=== PATIENT | male | born 1970 | race Caucasian/White ===

== ENCOUNTER 2023-07-24 18:29 | Emergency (ER) | payer OTHER, SELFPAY ==
[2023-07-24 18:35] VITALS: BP 139/81; PULSE 85; RESP 20; TEMP 36.4; O2SAT 95; BMI 30.7
--- NOTE | 2023-07-24 18:50 | XR_ITS ---
[place] [id number] Patient Name: PINA FAULKNER MRN: [id number] date: 1970 Sex: M Assigned Patient Location: ER Current Patient Location: ER Accession/Order Number: [id number] Exam Date: 07/24/2023 19:00 Report Date: 07/24/2023 19:30 At the request of: LUIS ANTONIO TREVIZO Procedure: XR hand RT min 3V EXAM: XR hand RT min 3V HISTORY: Hand pain COMPARISON: None. TECHNIQUE: Region views FINDINGS: No osseous lesion, fracture, dislocation or subluxation. Joint spaces are normal. Negative ulnar variance within normal limits. No visualized effusion. No visualized soft tissue edema. XR/XR hand RT min 3V IMPRESSION: No visualized abnormality Electronically authenticated by: LUPIS REGAN Date: 07/24/2023 19:30
--- NOTE | 2023-07-24 19:01 | ED_ITS ---
HPI - Extremity Problem General Chief complaint: Extremity Problem, Nontraumatic Stated complaint: HAND INJURY Time Seen by Provider: 07/24/23 18:45 Source: patient Mode of arrival: walk-in Limitations: no limitations History of Present Illness HPI Narrative: patient is a 52-year-old male who presents to the emergency department for the evaluation of right hand pain. Patient states earlier today he was working in his garage and using a hammer in his right hand as well as a saw. He states he developed pain in the dorsum of the right hand and feels as though the area is swollen. He has not noticed any redness, wounds or drainage. He denies any direct mechanism of injury or trauma to the area. No medications taken prior to arrival. He is right-hand dominant. Related Data Previous Rx's Medication Instructions Recorded hydrocodone 5 mg-acetaminophen 325 1 tab PO Q6H PRN pain #8 tabs 07/24/23 mg tablet ketorolac 10 mg tablet 10 mg PO TID PRN pain #6 tabs 07/24/23 prednisone 20 mg tablet 60 mg PO DAILY 3 days #9 tabs 07/24/23 Allergies Allergy/AdvReac Type Severity Reaction Status Date / Time No Known Drug Allergies Allergy Verified 07/24/23 18:41 Review of Systems ROS Constitutional Denies: fever or chills Ears, nose, mouth, and throat Denies: throat pain Cardiovascular Denies: chest pain Respiratory Denies: shortness of breath or cough Gastrointestinal Denies: nausea or vomiting Musculoskeletal Reports: extremity pain and extremity swelling; Denies: back pain or neck pain Integumentary/Breast Denies: rash Neurological Denies: headache Hematologic/Lymphatic Denies: easy bruising [facility] Social History Smoking status: Former smoker Exam Narrative Exam Narrative: Gen.: Awake, alert, in no distress Head: Normocephalic, atraumatic ENT: Moist mucous membranes Respiratory: No respiratory distress, lungs clear bilaterally Cardio: Regular rate and rhythm Extremities: swelling and mild tenderness noted to the dorsum of the right hand, no obvious deformity or ecchymosis noted. Normal promotions producer strength in the right hand. 2+ right radial pulse. No redness, open wounds or red streaking noted. Normal sensation to the fingertips Psych: Normal mood and affect Neuro: No focal neuro deficit Skin: Warm, dry, intact Constitutional Vital Signs, click to edit/add: Last Vital Signs Temp 97.6 F 07/24/23 18:35 Pulse 85 07/24/23 18:35 Resp 20 07/24/23 18:35 BP 139/81 07/24/23 18:35 Pulse Ox 95 07/24/23 18:35 O2 Del Method Room Air 07/24/23 18:35 Course Vital Signs Vital signs: Vital Signs Temperature 97.6 F 07/24/23 18:35 Pulse Rate 85 07/24/23 18:35 Respiratory Rate 20 07/24/23 18:35 Blood Pressure 139/81 07/24/23 18:35 Pulse Oximetry 95 07/24/23 18:35 Oxygen Delivery Method Room Air 07/24/23 18:35 Temperature 97.6 F 07/24/23 18:35 Pulse Rate 85 07/24/23 18:35 Respiratory Rate 20 07/24/23 18:35 Blood Pressure 139/81 07/24/23 18:35 Pulse Oximetry 95 07/24/23 18:35 Oxygen Delivery Method Room Air 07/24/23 18:35 MDM - Extremity (Nontraumatic) MDM Narrative Medical decision making narrative: x-rays with no evidence of acute abnormality and lab studies show uric acid at upper limits of normal but CRP and sedimentation rate are normal. Patient with no red, swollen joints and only diffuse minimal edema of the dorsum of the right hand. CRP and sedimentation rate are normal. He will be placed on a short course of prednisone, anti-inflammatories and analgesics. Irineo wrap applied to the right hand with improvement. Patient remains neurovascularly intact. Rest, ice, elevate. Follow-up with PCP and return to the Emergency Room if symptoms change or worsen. Medical Records Attestation: I reviewed the patient's medical records. Lab Data Attestation: I reviewed the patient's lab results. Labs: Lab Results 07/24/23 Range/Units 19:25 WBC 7.4 (4.0-11.0) 10^3/uL RBC 4.33 L (4.70-6.10) 10^6/uL Hgb 13.5 L (14.0-18.0) g/dL Hct 39.7 L (42.0-54.0) % MCV 91.7 (80.0-94.0) fL MCH 31.2 (25.9-34.0) pg MCHC 34.0 (29.9-35.2) g/dL RDW 12.2 (11.0-15.0) % Plt Count 156 (150-450) 10^3/uL MPV 11.7 (9.5-13.5) fL Neut % (Auto) 59.3 (43.0-75.0) % Lymph % (Auto) 23.1 (20.5-60.0) % [place] % (Auto) 9.5 (1.7-12.0) % Eos % (Auto) 6.5 (0.9-7.0) % Baso % (Auto) 0.8 (0.2-2.0) % Neut # (Auto) 4.4 (1.4-6.5) 10^3/uL Lymph # (Auto) 1.7 (1.2-3.8) 10^3/uL [place] # (Auto) 0.7 (0.3-0.8) 10^3/uL Eos # (Auto) 0.5 (0.0-0.7) 10^3/uL Baso # (Auto) 0.1 (0.0-0.1) 10^3/uL Abs Immat Gran (auto) 0.06 H (0.00-0.03) 10^3/uL Imm/Tot Granulo (auto) 0.8 H (0.0-0.5) % ESR 12 (<=20) mm/hr Sodium 137 (136-145) mmol/L Potassium 3.6 (3.5-5.1) mmol/L Chloride 101 (98-107) mmol/L Carbon Dioxide 26.4 (21.0-32.0) mmol/L Anion Gap 13.2 BUN 15.0 (7.0-18.0) mg/dL Creatinine 1.18 (0.70-1.30) mg/dL Est GFR ( Amer) >60 (>=60) Est GFR (Non-Af Amer) >60 (>=60) BUN/Creatinine Ratio 12.7 Glucose 97 (74-106) mg/dL Uric Acid 7.7 H (3.5-7.2) mg/dL Calcium 8.6 (8.5-10.1) mg/dL C-Reactive Protein <1.0 (<=1.0) mg/dL Imaging Data XR hand: Attestation: I have reviewed the pertinent imaging results. Radiologist's impression: Procedure: XR hand RT min 3V EXAM: XR hand RT min 3V HISTORY: Hand pain COMPARISON: None. TECHNIQUE: Region views FINDINGS: No osseous lesion, fracture, dislocation or subluxation. Joint spaces are normal. Negative ulnar variance within normal limits. No visualized effusion. No visualized soft tissue edema. IMPRESSION: No visualized abnormality Electronically authenticated by: LUPIS REGAN Date: 07/24/2023 19:30 Discharge Plan Discharge Chief Complaint: Extremity Problem, Nontraumatic Clinical Impression: Hand pain, right Patient Disposition: Home, Self-Care Time of Disposition Decision: 19:52 Condition: Good Prescriptions / Home Meds: New hydrocodone-acetaminophen 5-325 mg tablet 1 tab PO Q6H PRN (Reason: pain) Qty: 8 0RF Rx Instructions: DX: M79.641 ketorolac 10 mg tablet 10 mg PO TID PRN (Reason: pain) Qty: 6 0RF prednisone 20 mg tablet 60 mg PO DAILY 3 Days Qty: 9 0RF Instructions: Arthralgia (ED), Tendinitis (ED) Stand Alone Forms: Portal Instructions Referrals: Physician,Non-Staff, MD [Primary Care Provider] - 1 week
[2023-07-24] MEDS: HYDROCODONE/ACET 5-325 MG TABLET 1 TAB PO (19:29)
[2023-07-24] MEDS: KETOROLAC TROMETHAMINE 10 MG TABLET PO (19:29)
[2023-07-24 19:35] LABS: Basophils Absolute Auto 0.1 10^3/uL (0.0-0.1); Basophils Percent Auto 0.8 % (0.2-2.0); Eosinophils Absolute Auto 0.5 10^3/uL (0.0-0.7); Eosinophils Percent Auto 6.5 % (0.9-7.0); Hematocrit 39.7 % (42.0-54.0); Hemoglobin 13.5 g/dL (14.0-18.0); Immature Granulocytes Abs Auto 0.06 10^3/uL (0.00-0.03); Immature Granulocytes Pct Auto 0.8 % (0.0-0.5); Lymphocytes Absolute Auto 1.7 10^3/uL (1.2-3.8); Lymphocytes Percent Auto 23.1 % (20.5-60.0); Mean Corpuscular Hemoglobin 31.2 pg (25.9-34.0); Mean Corpuscular Volume 91.7 fL (80.0-94.0); Mean Platelet Volume 11.7 fL (9.5-13.5); Monocytes Absolute Auto 0.7 10^3/uL (0.3-0.8); Monocytes Percent Auto 9.5 % (1.7-12.0); Neutrophils Absolute Auto 4.4 10^3/uL (1.4-6.5); Neutrophils Percent Auto 59.3 % (43.0-75.0); Platelet Count 156 10^3/uL (150-450); Red Blood Count 4.33 10^6/uL (4.70-6.10); Red Cell Distribution Width 12.2 % (11.0-15.0); White Blood Count 7.4 10^3/uL (4.0-11.0)
[2023-07-24 19:41] LABS: Erythrocyte Sedimentation Rate 12 mm/hr (<=20)
[2023-07-24 19:46] LABS: Anion Gap 13.2; BUN Creatinine Ratio 12.7; Calcium 8.6 mg/dL (8.5-10.1); Carbon Dioxide 26.4 mmol/L (21.0-32.0); Chloride 101 mmol/L (98-107); Estimated GFR (African America >60 (>=60); Estimated GFR (Non-African Ame >60 (>=60); Glucose 97 mg/dL (74-106); Potassium 3.6 mmol/L (3.5-5.1); Sodium 137 mmol/L (136-145); Uric Acid 7.7 mg/dL (3.5-7.2)
[2023-07-24 19:47] LABS: C Reactive Protein <1.0 mg/dL (<=1.0)
== END 2023-07-24 20:00 | disposition home or self-care (01) ==
PROVIDERS: Physician Assistant; Emergency Provider Emergency Medicine
DX: M79.641 Pain in right hand (principal); Z87.891 Personal history of nicotine dependence
CPT/HCPCS: 36415; 73130; 80048; 84550; 85025; 85652; 86140; 99284